=== PATIENT | male | born 1990 | race African-American/Black ===

== ENCOUNTER 2025-01-12 13:58 | Emergency (ER) | payer SELFPAY ==
[~2025-01-12] VITALS: Ht 190.5 cm; Wt 80.0 kg
[2025-01-12 14:03] VITALS: O2SAT 95
[2025-01-12 14:06] VITALS: BP 129/72; PULSE 60; RESP 16; TEMP 37.1; O2SAT 100
== END 2025-01-12 16:32 | disposition left against medical advice (07) ==
LOC: ER 13:58
DX: S63.280A Dislocation of proximal interphalangeal joint of right index finger, initial encounter (principal); W21.05XA Struck by basketball, initial encounter; Y93.67 Activity, basketball; Y92.89 Other specified places as the place of occurrence of the external cause; Y99.8 Other external cause status
CPT/HCPCS: 26770; 73120; 99284